=== PATIENT | female | born 1965 | race Caucasian/White ===

== ENCOUNTER → 2025-02-16 11:02 | Outpatient (REF) | payer OTHER, SELFPAY ==
[2025-02-17 18:46] LABS: Hepatitis B Surface Antibody Negative
[2025-02-17 19:45] LABS: Rubella Positive
[2025-02-18 09:24] LABS: Quantiferon Mitogen minus NIL 9.96 IU/mL; Quantiferon NIL 0.04 IU/mL; Quantiferon TB Gold Plus Negative (Negative)
== END ==
LOC: REG 11:02
PROVIDERS: ATTENDING PHYSICIAN Nurse Practitioner Family
DX: Z23 Encounter for immunization (principal)
CPT/HCPCS: 36415; 86480; 86706; 86735; 86762; 86765; 86787